=== PATIENT | female | born 1995 | race Two or more races ===

== ENCOUNTER 2020-07-05 12:29 | Outpatient (REF) | payer OTHER, SELFPAY | END 2020-07-05 12:30 | disposition home or self-care (01) | LOC: HO.LAB 12:29 | PROVIDERS: Visit Provider Internal Medicine | DX: Z20.828 Contact with and (suspected) exposure to other viral communicable diseases (principal) | CPT/HCPCS: C9803; U0003 ==

== ENCOUNTER 2020-09-12 12:06 | Outpatient (REF) | payer OTHER, SELFPAY | END 2020-09-12 12:07 | disposition home or self-care (01) | LOC: HO.LAB 12:06 | PROVIDERS: Visit Provider Internal Medicine | DX: Z20.822 Contact with and (suspected) exposure to COVID-19 (principal) | CPT/HCPCS: 36415; C9803; U0003; U0005 ==

== ENCOUNTER 2024-06-30 09:45 | Emergency (ER) | payer OTHER, SELFPAY ==
--- NOTE | ~2024-06-30 | CT_ITS ---
EXAMINATION: CT ABDOMEN AND PELVIS WITHOUT CONTRAST CLINICAL INFORMATION: [Back pain radiating to the lower abdomen COMPARISON: None available. TECHNIQUE: Multidetector volumetric imaging was performed from the superior aspect of the liver through the pubic symphysis. Sagittal and coronal reformatted images were obtained on the technologist's workstation. This CT examination was performed using dose optimization techniques as appropriate, variously including the following: *Automated exposure control *Adjustment of mA and/or kV according to patient size (this includes techniques or standardized protocols for targeted exams where dose is matched to indication/reason for exam; i.e. extremities or head) *Use of iterative reconstruction technique DLP: 1043 mGy-cm FINDINGS: LUNG BASES: The visualized lung bases are unremarkable. LIVER, GALLBLADDER, AND BILIARY TREE: Advanced hepatic steatosis. The liver is prominent. No focal hepatic mass. No intrahepatic biliary dilatation. The gallbladder is surgically absent. PANCREAS: Unremarkable. SPLEEN: Subjectively slightly prominent with a few adjacent tiny splenules but no splenic lesion or perisplenic collection. ADRENAL GLANDS: Unremarkable. KIDNEYS AND URETERS: The kidneys are normal in size, shape, and attenuation. No hydronephrosis, hydroureter, or calculi seen. No perinephric stranding. BLADDER: Unremarkable. GASTROINTESTINAL TRACT: No bowel obstruction or right or left lower quadrant inflammatory change. Appendix normal. ABDOMINAL WALL: No significant hernia is appreciated. LYMPH NODES: Normal. VASCULAR: Unremarkable. PELVIC VISCERA: Unremarkable. OSSEOUS STRUCTURES: Unremarkable. CT/CT abdomen pelvis wo IV con IMPRESSION: Enlarged liver with advanced hepatic steatosis. Fleischner guidelines were followed. Electronically signed by: Jose Rosen MD 06/30/2024 05:29 PM [facility]
[2024-06-30 09:52] VITALS: BP 130/78; PULSE 83; RESP 20; TEMP 36.1; O2SAT 98; BMI 47.1
[2024-06-30 10:43] LABS: MANUAL DIFF FLAG NO
[2024-06-30 10:44] LABS: Basophils Percent Auto 0.4 % (0-2); Eosinophils Absolute Auto 0.1 X10*3/uL (0.0-0.4); Eosinophils Percent Auto 0.5 % (0-4); Hematocrit 37.1 % (37.0-47.0); Imm Gran Abs Auto 0.04 X10*3/uL (0.00-0.03); Imm Gran Pct Auto 0.4 % (0.0-0.4); Lymphocytes Absolute Auto 2.6 X10*3/uL (1.2-4.9); Lymphocytes Percent Auto 26.5 % (20-40); Mean Corpuscular HGB Conc 32.3 g/dl (31.0-35.0); Mean Corpuscular Hemoglobin 26.1 pg (27.0-33.0); Mean Corpuscular Volume 80.8 fL (80.0-98.0); Monocytes Absolute Auto 0.5 X10*3/uL (0.1-1.2); Monocytes Percent Auto 5.5 % (2-11); Neutrophils Absolute Auto 6.4 x10*3/uL (2.0-8.3); Neutrophils Percent Auto 66.7 % (45-73); Platelet Count 237 X10*3/uL (160-400); Red Blood Count 4.59 X10*6/uL (4.20-5.50); Red Cell Distribution Width 13.6 % (11.0-16.0); White Blood Count 9.7 X10*3/uL (4.8-10.8)
[2024-06-30 10:46] LABS: Appearance Urine Clear; Color Urine Yellow; Glucose Urine UA Negative (Negative); Leukocyte Esterase Urine Negative (Negative); Nitrite Urine Positive (Negative); PH 5.5 (5.0-9.0); Specific Gravity - Urine >= 1.030 (1.005-1.025); UMIC TRIGGER UACC YES; Urine Blood Negative (Negative); Urine Ketones Negative (Negative); Urine Protein Negative (Neg-Trace)
[2024-06-30 10:48] LABS: UPreg QC Valid YES; Urine Pregnancy NEGATIVE (NEGATIVE)
[2024-06-30 10:52] LABS: Bacteria Urine 2+ (None Seen); Hyaline Casts Urine 0-2 /LPF (0-2); RBC Urine 0-2 /HPF (0-2); UACC Culture Trigger YES; WBC Urine 0-5 /HPF (0-5)
[2024-06-30 10:58] LABS: Alanine Aminotransferase 59 U/L (0-31); Albumin Level 4.5 g/dL (3.5-5.0); Alkaline Phosphatase 94 U/L (39-117); Anion Gap 12 (12-20); Aspartate Amino Transferase 41 U/L (5-31); Bilirubin Direct 0.1 mg/dL (0.0-0.5); Bilirubin Total 0.3 mg/dL (0.0-1.0); Blood Urea Nitrogen 13 mg/dL (9-16); Calcium 10.2 mg/dL (8.4-10.2); Carbon Dioxide 26 mmol/L (22-29); Chloride 106 mmol/L (96-108); Creatinine Clr Calc Pharmacy 144.4; Estimated Glomerular Filt Rate > 60; Glucose Random 101 mg/dL (60-115); Lipase 10 U/L (8-78); Potassium 4.3 mmol/L (3.3-5.1); Sodium 140 mmol/L (135-145); Total Protein 8.2 g/dL (6.5-8.0)
[2024-06-30 16:26] VITALS: BP 105/72; PULSE 90; RESP 20; TEMP 37.1; O2SAT 99
--- NOTE | 2024-06-30 16:27 | ED.ABDPAIN ---
HPI - Abdominal Pain General Chief Complaint: Abdominal Pain Stated Complaint: cramps, back pain Time Seen by Provider: 06/30/24 19:49 Source: patient, RN notes reviewed and old records reviewed Mode of arrival: ambulatory Limitations: no limitations History of Present Illness ED Provider: Shirley PEACOCK narrative: 29-year-old female presents for evaluation of lower abdominal pain and back pain. Her pain has been present for about a week and a half. Her symptoms started shortly having her IUD removed She reports that her pain comes and goes. Currently her pain is mild but at worst is 10/10. She reports associated nausea without vomiting. Denies any burning with urination, blood in the urine. Denies any fevers, chills Related Data Previous Rx's ?Medication ?Instructions ?Recorded cyclobenzaprine 10 mg tablet 10 mg PO TID PRN muscle spasm #20 06/30/24 tabs Allergies Allergy/AdvReac Type Severity Reaction Status Date / Time Penicillins [PENICILLINS] Allergy Unknown UNKNOWN Verified 06/30/24 09:55 Review of Systems Constitutional: Denies body ache(s), Denies chills, Denies fever(s) and Denies frequent falls Eyes: Denies blurry vision Denies vertigo and Denies dizziness Cardiovascular: Denies chest pain and Denies dyspnea Respiratory: Denies cough and Denies dyspnea Gastrointestinal: Reports abdominal pain, Reports nausea and Denies vomiting Genitourinary: Denies hematuria, Denies difficulty voiding, Denies nocturia, Denies genital pruritis and Denies vaginal discharge Musculoskeletal: Reports back pain Skin/Breast: Denies rash Denies vertigo, Denies dizziness and Denies frequent falls Psychiatric: Denies anxiety PMFSH Social History Social History Advance Directives: No Advance Directives Information Provided: No Do you have a plan to hurt others: No Plan Physical Exam ED Vital Signs: Vital Signs - 24 hr 06/30/24 09:52 06/30/24 16:26 06/30/24 19:57 Temperature 97.0 F 98.7 F 98.3 F Pulse Rate 83 90 91 Respiratory Rate 20 20 16 Blood Pressure 130/78 105/72 123/45 L Pulse Oximetry 98 99 98 Oxygen Delivery Method Room Air Room Air Room Air 06/30/24 20:22 Temperature 98.3 F Pulse Rate 91 Respiratory Rate 16 Blood Pressure 123/45 L Pulse Oximetry 98 Oxygen Delivery Method Room Air BMI result Body Mass Index 47.1 Const General: healthy appearing, comfortable, no acute distress, alert and awake Nutritional Appearance: well nourished Orientation/consciousness: patient oriented x3 HENMT Head: Yes normocephalic and Yes atraumatic Eyes Eyelids: Yes eyelids normal Conjunctivae: conjunctivae normal Sclerae: sclerae normal Corneas: corneas normal Pupils: Equal, round and reactive pupils present EOM: EOMs intact bilaterally Neck Neck: Yes full ROM Resp Effort & Inspection: normal respiratory effort, able to speak in complete sentences and not labored Cardio Rate: regular rate Rhythm: regular rhythm GI Inspection: No distended Palpation (GI): Soft to palpation, not firm, nontender, no guarding and not rigid Skin General skin exam: elasticity normal Neuro General: patient oriented x3 Cranial nerves: Yes Equal, round and reactive pupils present and Yes Bilaterally intact EOM present Cognition (Neuro): normal cognition Extrem Other: Moving all extremities well without any obvious deformities Course Course Course Narrative: This is a Rapid Medical Exam performed in triage by Mariajose Smith PA-C. Full HPI, ROS and PE to be performed by primary ED provider. 29-year-old female with no significant past medical history presenting to the ED c/o left lower abdominal pain radiating to low back with associated nausea. Denies urinary symptoms or fever. PE: Abdomen soft. Ambulating with steady gait Plan: Labs and UA previously done, CT Medical Decision Making Medical Decision Making [facility] [place] Narrative: 29-year-old female presents for evaluation of abdominal pain that radiates to her back. She was quite well appearing, her physical exam is benign. Her labs show no significant leukocytosis or left shift. Chemistries show a very mild elevation of AST and ALT which is likely due to the fatty liver seen on her CT scan. I did discuss this with her which she was unaware of previously. The patient's urinalysis has positive nitrites and 2+ bacteria but no white cells, red cells and there is several squamous cells, so this is likely a contaminant. She also has no UTI symptoms. Will defer antibiotic treatment at this time Differential Diagnosis Differential Diagnoses: The differential diagnosis associated with the presentation includes Abdominal pain Back pain UTI Muscle spasm Lab Data [facility] [place] Lab Attestation statement: I reviewed the patient's lab results. 06/30/24 10:39 12/04/24 10:39 Labs: Lab Results 06/30/24 Range/Units 10:39 WBC 9.7 (4.8-10.8) X10*3/uL RBC 4.59 (4.20-5.50) X10*6/uL Hgb 12.0 (12.0-16.0) g/dl Hct 37.1 (37.0-47.0) % MCV 80.8 (80.0-98.0) fL MCH 26.1 L (27.0-33.0) pg MCHC 32.3 (31.0-35.0) g/dl RDW 13.6 (11.0-16.0) % Plt Count 237 (160-400) X10*3/uL MPV 11.0 (9.4-12.3) fL Immature Gran % (Auto) 0.4 (0.0-0.4) % Neut % (Auto) 66.7 (45-73) % Lymph % (Auto) 26.5 (20-40) % Runnels % (Auto) 5.5 (2-11) % Eos % (Auto) 0.5 (0-4) % Baso % (Auto) 0.4 (0-2) % Lymph # (Auto) 2.6 (1.2-4.9) X10*3/uL Runnels # (Auto) 0.5 (0.1-1.2) X10*3/uL Eos # (Auto) 0.1 (0.0-0.4) X10*3/uL Baso # (Auto) 0.0 (0.0-0.2) X10*3/uL Abs Immat Gran (auto) 0.04 H (0.00-0.03) X10*3/uL Absolute Neuts (auto) 6.4 (2.0-8.3) x10*3/uL Absolute Nucleated RBC 0.000 (0.0-0.012) X10*3/uL Nucleated RBC % (auto) 0.0 (0.0-0.2) /100WBC Sodium 140 (135-145) mmol/L Potassium 4.3 (3.3-5.1) mmol/L Chloride 106 (96-108) mmol/L Carbon Dioxide 26 (22-29) mmol/L Anion Gap 12 (12-20) BUN 13 (9-16) mg/dL Creatinine 0.63 (0.5-1.4) mg/dL Estim Creat Clear Calc 144.4 Estimated GFR > 60 Random Glucose 101 (60-115) mg/dL Calcium 10.2 (8.4-10.2) mg/dL Total Bilirubin 0.3 (0.0-1.0) mg/dL Direct Bilirubin 0.1 (0.0-0.5) mg/dL AST 41 H (5-31) U/L ALT 59 H (0-31) U/L Alkaline Phosphatase 94 (39-117) U/L Total Protein 8.2 H (6.5-8.0) g/dL Albumin 4.5 (3.5-5.0) g/dL Lipase 10 (8-78) U/L Urine Color Yellow Urine Appearance Clear Urine pH 5.5 (5.0-9.0) Ur Specific [place] >= 1.030 H (1.005-1.025) Urine Protein Negative (Neg-Trace) mg/dL Urine Glucose (UA) Negative (Negative) mg/dL Urine Ketones Negative (Negative) mg/dL Urine Blood Negative (Negative) Urine Nitrite Positive H (Negative) Ur Leukocyte Esterase Negative (Negative) Urine RBC 0-2 (0-2) /HPF Urine WBC 0-5 (0-5) /HPF Ur Squamous Epith Cells 6-10 (0-2) /HPF Urine Bacteria 2+ (None Seen) Hyaline Casts 0-2 (0-2) /LPF Urine Test NEGATIVE (NEGATIVE) Radiology Impression Discussion of test interpretation with radiology: I have reviewed the radiologist's reading. Radiologist Impression: FINDINGS: LUNG BASES: The visualized lung bases are unremarkable. LIVER, GALLBLADDER, AND BILIARY TREE: Advanced hepatic steatosis. The liver is prominent. No focal hepatic mass. No intrahepatic biliary dilatation. The gallbladder is surgically absent. PANCREAS: Unremarkable. SPLEEN: Subjectively slightly prominent with a few adjacent tiny splenules but no splenic lesion or perisplenic collection. ADRENAL GLANDS: Unremarkable. KIDNEYS AND URETERS: The kidneys are normal in size, shape, and attenuation. No hydronephrosis, hydroureter, or calculi seen. No perinephric stranding. BLADDER: Unremarkable. GASTROINTESTINAL TRACT: No bowel obstruction or right or left lower quadrant inflammatory change. Appendix normal. ABDOMINAL WALL: No significant hernia is appreciated. LYMPH NODES: Normal. VASCULAR: Unremarkable. PELVIC VISCERA: Unremarkable. OSSEOUS STRUCTURES: Unremarkable. CT/CT abdomen pelvis wo IV con IMPRESSION: Enlarged liver with advanced hepatic steatosis. Fleischner guidelines were followed. Electronically signed by: Jose Rosen MD 06/30/2024 05:29 PM [facility] Discharge Plan Discharge Clinical Impression: Abdominal pain, Back pain, Fatty liver disease, nonalcoholic Patient Disposition: Home, Self-Care Instructions: Back Pain (ED) Additional Instructions: Your workup in the ER today was reassuring. Your CT scan did show fatty liver You should follow this up with your primary doctor You may use ibuprofen/Tylenol for pain. Use cyclobenzaprine as needed for muscle spasms Your symptoms are likely related to your IUD being removed Prescriptions: New cyclobenzaprine 10 mg tablet 10 mg PO TID PRN (Reason: muscle spasm) Qty: 20 0RF Stand Alone Forms: Work/School Release Interventions: ED Discharge Assessment Last Done: 06/30/24 20:22 Discharge Date/Time: 06/30/24 20:23 Print Language: Namibian
[2024-06-30 19:57] VITALS: BP 123/45; PULSE 91; RESP 16; TEMP 36.8; O2SAT 98
[2024-06-30 20:22] VITALS: BP 123/45; PULSE 91; RESP 16; TEMP 36.8; O2SAT 98
--- OUTSIDE RECORDS SUMMARY | 2024-07-06 17:18 | XMS_ITS | Continuity of Care Document ---
Author Organization [facility] Address [address] [place] [address] Phone Care Team Providers Care Assistant Family Teacher Name Role Phone Chad Ridley CNM Unavailable Unavailable Allergies, Adverse Reactions, Alerts Substance Reaction Status Criticality Penicillins Angioedema Active No Information Medications Medication Instructions Dosage Effective Dates (start - stop) Status Comments Sprintec (28) 0.25 mg-35 mcg tablet take 1 tablet by oral route every day 1.00 tablet - Active Nexplanon 68 mg subdermal implant remove after 3 years. - No Longer Active Procedures Procedure Date Implanon Removal FAMILY PLANNING ENCOUNTER Procedure Only Visit(No E/M) IMMUNIZATION ADMIN ADDITIONAL VACCINE Oc TDAP - State Supplied 7 And Older IMMUNIZATION ADMIN 1ST VACCINE 17 Flu Vaccine >3 Years PREVENT VISIT EST 18-39 REFRACTION EYE EXAM & TREATMENT Est Comprehensive S Comp, 2 Surf, Posterior Prophylaxis - Adult Oral Hygiene Instructions Comprehensve Oral Exam Full Mouth Series Caries Risk Asses_High Risk Medical Advisor Referral TEST Implanon Insertion Etonogestrel implant system OFFICE/OUTPATIENT VISIT, EST FAMILY PLANNING ENCOUNTER FAMILY PLANNING ENCOUNTER PREVENT VISIT NEW AGE 18-39 Advance Directives Directive Yes / No Effective Date File Name No Information Encounters Encounter Description Practice Location Reason(s) For Visit Diagnoses Date Provider Providers Copied on Encounter [facility] [address] [place] [address], [id number] , tel: [phone] [facility] Nexplanon removal (chief complaint)c ontraceptio n (chief complaint) Encounter for oth general cnsl and advice on contraceptionNexpl anon removal 8 Khai Tangele. [address] [place] [address], [id number], [place]. tel:[phone] Referring Provider: Chad Ridley, [address] [place] [address], [id number]. tel:[phone] PREVENT VISIT EST 18-39 [facility] [address] [place] [address], [id number] , tel: [phone] [facility] Preventive exam (chief complaint)h a (chief complaint) Obesity, unspecifiedPrevent ative health careTension-type headache, not intractable, unspecified chronicity pattern 7 Sonam Portillo. [address] [place] [address], [id number], [place]. tel:[phone] Referring Provider: Lindsey Masters, [address] [place], [address] . tel:[phone] [facility] [address] [place] [address], [id number] , tel:[phone] [address] [place] [address] Optometry routine exam (chief complaint) Encounter for examination of eyes and vision without abnormal findingsHypermetro mattie, bilateral Sep-2 8201 7 Shawna Benjamin. [address] [place] [address], [id number], [place]. tel:[phone] [facility], [address] [place] [address], [id number] , [place] tel: [phone] [facility] Dental examination 201 7 Ally Barker. [address] [place] [address], [id number], [place]. tel:[phone] [facility] [address] [place] [address], [id number] , tel: [phone] [facility] Dental examination 7 Pete Phillips. [address] [place] [address], [id number], [place]. tel:[phone] [facility] [address] [place] [address], [id number] , tel: [phone] [facility] Dental examination 7 Ally Barker. [address] [place] [address], [id number], . tel:[phone] Referring Provider: Zaina Wong, [address] [place] [address], [id number]. tel:[phone] OFFICE/OUTPA TIENT VISIT, [facility] [address] [place] [address], [id number] , tel: [phone] [facility] Nexplanon Insertion (chief complaint) Encounter for oth general cnsl and advice on contraception 7 Khai Bonilla. [address] [place] [address], Count includes the [facility], [place]. tel:[phone] Referring Provider: Chad Ridley, [address] [place] [address], Count includes the [facility]. tel:[phone] PREVENT VISIT NEW AGE 18-39 [facility] [address] [place] [address], [id number] , tel: [phone] [facility] annual exam (chief complaint) Encounter for oth general cnsl and advice on contraceptionRouti ne gynecological examination 7 Khai Bonilla. [address] [place] [address], [id number], [place]. tel:[phone] Referring Provider: Chad Ridley, [address] [place] [address]. tel:[phone] Family History Family Member Type Diagnosis Age At Onset Sister Problem (finding) Alive and well Mother Problem (finding) Alive and well Brother Problem (finding) Alive and well Father Problem (finding) Alive and well Immunizations Vaccine Date Status Comments Tdap administered Source: New Imm unization Record Flu Vaccine ([id number]) administered Sour ce: New Immunization Record Payers Payer name Insurance type Covered libertarian ID Authoriza tion(s) [facility] [employer] [place] [id number] [facility] [employer] Primary [employer] [place] [id number] Social History Type Description Quantity Date Captured Comments Alcohol Use Details No Caffeine Use Details soda and occ 1 cup per day 8 Tobacco Use Status Never smoked tobacco 2017 Smoking Status Never smoker Non-Smoking Tobacco Use Details : No Details Available : No Details Available Sex Female Vital Signs Date / Time: Height Weight BMI Pulse Rate Blood Pressure Temperature Respiratory Rate Body Surface Area Head Circumference Head Circ. Percentile Wt./Jamil. Percentile BMI percentile Pulse Ox Inhaled Ox 3:38 PM 149.86 cm 90.265 kg (199.00 lbs) 40.1 9 kg/m eter (2) 90 /min 110/80 mm[Hg] 98.70 F 19 /min 99 % Chief Complaint And Reason For Visit From encounter dated '10/17/2017 16:00'. Nexplanon removal (chief complaint) contraception (chief complaint). Description: Would like to try OCPs. H/O migraines, reviewed with her. Wants to try anyway. Will return if not happy and would consider ParaGard. Reason For Referral Reason For Referral No Information Plan Of Treatment Date Type Action Status Goal HIV screen. Due on 18 due Goal HPV (1st). Due on 8 due Goal Influenza vaccine. Due on Oc due Goal Tdap due Goal HPV (1st). Due on 7 due Goal HIV screen. Due on 17 due Goal HIV screen. Due on 17 due Goal Td vaccine. Due on 17 due Goal Influenza vaccine. Due on due Goal HPV (1st). Due on due Goal Tdap. Due on due Goal HIV screen. Due on due Goal Tdap. Due on due Goal Influenza vaccine. Due on due Goal HPV (1st). Due on due Goal Td vaccine. Due on due Goal Influenza vaccine. Due on due Goal HPV (1st). Due on due Goal Td vaccine. Due on due Goal HIV screen. Due on due Goal Tdap. Due on due Referral Ordered: Referrals: [facility] ordered Patient Education Tension Headache: Care Instructions completed Patient Education Well Visit, Ages 18 to 50: Care Instru completed Patient Education Breast Self-Exam: Care Instructions completed History Of Present Illness Encounter Date Complaint History Of Prese nt Illness contraception Would like to tr y OCPs. H/O migraines, reviewed with her. Wants to try anyway. Will return if not happy and would consider ParaGard. Nexplanon removal romano Client reports f requent ROMANO's , frontal several per week , . No specific etiology or resolving factores. \Sleep is uninterrupted, no exercise, Nexplanon contraception. Preventive exam routine exam Nexplanon Insertion The symptoms generally last 3 Years. The location is arm. Here to place Nexplanon. Lab results reviewed. Pt. agrees to cont. annual exam Currently pregna nt: no. : 1. Parity: Term: 1. Livin. The patient states she uses abstinence for control. Last LMP was 12/22/2016. Her menses is irregular. Negative for dysmenorrhea and menorrhagia. Negative for: breast discharge, breast lump(s) and breast pain. Positive for: breast self exam. Pertinent negatives include depression, history of infertility, vaginal discharge and vaginal itching. She does not take calcium. She does not take Vitamin D. She does take multivitamins occasionally. She does not take Folic acid. The patient does not use tobacco. She has not been exposed to passive smoke. She does not drink alcohol. Functional Status Date Functional Assessmen t Pain Score 0/10 Instructions Date Instruction Additional Infor raphael Call with any severe headaches, abdominal pain, leg pain, chest pain, shortness of breath.Start now or you can wait until the Friday of the week your period starts.Use a back up method for 1 week after starting them.Common side effects will get better after at least 3 months. Plan on coming in if they bother you or you want to change to another kind. Related to Encounter for oth general cnsl and advice on contraception CAll for lab/diagnos tic results. Maintain a regular cardiovascular exercise program. The patient was advised to call the office if symptoms worsen or do not improve. The patient verbalized an understanding of the plan. RTO for wellness exam in 1 yr or prn illness/concern Related to Preventative health care Dietary needs education Related to Obesity, unspecified - No glasses needed at this time. Refractive error is low in each eye with excellent uncorrected visual acuities. Reviewed 20/20 rule for all prolonged near viewing for prolonged periods. Related to Hypermetropia, bilateral - Ocular health is w ithin normal limits. No ocular signs to indicate that an ocular problem is causing patients symptoms. Related to Encounter for examination of eyes and vision without abnormal findings Return in 4 weesk to check devic e. Related to Encounter for oth general cnsl and advice on contraception Return next for Nexplanon insert . Related to Encounter for oth general cnsl and advice on contraception Assessments Type Assessment Date assessment Encounter for oth general cnsl a nd advice on contraception assessment Nexplanon removal Mental Status Date Cognitive Assessment Orientation - [place] ed to time, place, person, situation. Patient Care Teams Name Effective Dates (start - stop) Status Members No Information
--- OUTSIDE RECORDS SUMMARY | 2024-07-06 22:12 | XMS_ITS | Continuity of Care Document ---
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 Role Phone Chad Ridley CNM Unavailable [...] Full Mouth Series Caries Risk Asses_High Risk Hat Liner Referral TEST Implanon Insertion Etonogestrel implant system OFFICE/OUTPATIENT VISIT, EST FAMILY PLANNING ENCOUNTER FAMILY PLANNING ENCOUNTER PREVENT VISIT NEW AGE 18-39 Advance Directives Directive Yes / No Effective Date File Name No Information Encounters Encounter Description Practice Location Reason(s) For Visit Diagnoses Date Provider Providers Copied on Encounter [facility] [address] [place] [address], [id number] , tel: [phone] [facility] Nexplanon removal (chief complaint)c ontraceptio n (chief complaint) Encounter for oth general cnsl and advice on contraceptionNexpl anon removal 8 Khai Tangele. [address] [place] [address], [id number], [place]. tel:[phone] Referring Provider: Chad Ridley, [address] [place] [address], [id number]. tel:[phone] PREVENT VISIT EST 18-39 [facility] [address] [place] [address], [id number] , tel: [phone] [facility] Preventive exam (chief complaint)h a (chief complaint) Obesity, unspecifiedPrevent ative health careTension-type headache, not intractable, unspecified chronicity pattern 7 Sonam Portillo. [address] [place] [address], [id number], [place]. tel:[phone] Referring Provider: Lindsey Masters, [address] [place], [address] . tel:[phone] [facility] [address] [place] [address], [id number] , tel:[phone] [address] [place] [address] Optometry routine exam (chief complaint) Encounter for examination of eyes and vision without abnormal findingsHypermetro mattie, bilateral Sep-2 8201 7 Shawna Benjamin. [address] [place] [address], [id number], [place]. tel:[phone] [facility], [address] [place] [address], [id number] , [place] tel: [phone] [facility] Dental examination 201 7 Ally Barker. [address] [place] [address], [id number], [place]. tel:[phone] [facility] [address] [place] [address], [id number] , tel: [phone] [facility] Dental examination 7 Pete Phillips. [address] [place] [address], [id number], [place]. tel:[phone] [facility] [address] [place] [address], [id number] , tel: [phone] [facility] Dental examination 7 Ally Barker. [address] [place] [address], [id number], . tel:[phone] Referring Provider: Zaina Wong, [address] [place] [address], [id number]. tel:[phone] OFFICE/OUTPA TIENT VISIT, [facility] [address] [place] [address], [id number] , tel: [phone] [facility] Nexplanon Insertion (chief complaint) Encounter for oth general cnsl and advice on contraception 7 Khai Bonilla. [address] [place] [address], [facility], [place]. tel:[phone] Referring Provider: Chad Ridley, [address] [place] [address], [facility]. tel:[phone] PREVENT VISIT NEW AGE 18-39 [facility] [address] [place] [address], [id number] , tel: [phone] [facility] annual exam (chief complaint) Encounter for oth general cnsl and advice on contraceptionRouti ne gynecological examination 7 Khai Bonilla. [address] [place] [address], [id number], [place]. tel:[phone] Referring Provider: Chad Ridley, [address] [place] [address]. tel:[phone] Family History Family Member Type Diagnosis Age At Onset Sister Problem (finding) Alive and well Mother Problem (finding) Alive and well Brother Problem (finding) Alive and well Father Problem (finding) Alive and well Immunizations Vaccine Date Status Comments Tdap administered Source: New Imm unization Record Flu Vaccine ([id number]) administered Sour ce: New Immunization Record Payers Payer name Insurance type Covered green party ID Authoriza tion(s) [facility] [employer] Specialty [place] [id number] [facility] [employer] Primary Care CI [id number] Social History Type Description Quantity Date Captured [...] Of Treatment Date Type Action Status Goal HPV (1st). Due on 8 due Goal HIV screen. Due on 18 due Goal HIV screen. Due on 17 due Goal HPV (1st). Due on 7 due Goal Tdap due Goal Influenza vaccine. Due on Oc due Goal Tdap. Due on due Goal HPV (1st). Due on 7 due Goal Influenza vaccine. Due on due Goal Td vaccine. Due on due Goal HIV screen. Due on due Goal Td vaccine. Due on due Goal HPV (1st). Due on 7 due Goal Influenza vaccine. Due on due Goal Tdap. Due on due Goal HIV screen. Due on due Goal Tdap. Due on due Goal HIV screen. Due on due Goal Td vaccine. Due on due Goal HPV (). Due on due Goal Influenza vaccine. Due on due Referral Ordered: Referrals: Advertising Statistical Clerk ordered Patient Education Tension Headache: Care Instructions completed Patient Education Well Visit, Ages 18 to 50: Care Instru completed Patient Education Breast Self-Exam: Care Instructions completed History Of Present Illness Encounter Date Complaint History Of Prese nt Illness Nexplanon removal contraception Would like to tr y OCPs. H/O migraines, reviewed with her. Wants to try anyway. Will return if not happy and would consider ParaGard. Preventive exam romano Client reports f requent ROMANO's , frontal several per week , . No specific etiology or resolving factores. \Sleep is uninterrupted, no exercise, Nexplanon contraception. routine exam Nexplanon Insertion The symptoms generally [...] needs education Related to Obesity, unspecified - Ocular health is w ithin normal limits. No ocular signs to indicate that an ocular problem is causing patients symptoms. Related to Encounter for examination of eyes and vision without abnormal findings - No glasses needed at this time. Refractive error is low in each eye with excellent uncorrected visual acuities. Reviewed 20/20 rule for all prolonged near viewing for prolonged periods. 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 Related to Encounter for oth general cnsl and advice on contraception Return next for Nexplanon insert . Related to Encounter for oth general cnsl and advice on contraception Assessments Type Assessment Date assessment Encounter for oth general cnsl a nd advice on contraception assessment Nexplanon removal Mental Status Date Cognitive Assessment Orientation - Harrington ed to time, place, person, situation. Patient Care Teams Name Effective Dates (start - stop) Status Members No Information
== END 2024-06-30 20:23 | disposition home or self-care (01) ==
PROVIDERS: Emergency Provider Emergency Medicine Emergency Medical Services
DX: R10.30 Lower abdominal pain, unspecified (principal); M54.9 Dorsalgia, unspecified; K76.0 Fatty (change of) liver, not elsewhere classified
CPT/HCPCS: 36415; 74176; 80048; 80076; 81001; 81025; 83690; 85025; 87086; 87088; 87186; 99283; 99284